=== PATIENT | male | born 1960 | race Two or more races ===

== ENCOUNTER 2016-06-26 08:36 | Day surgery (SDC) | payer BC ==
[~2016-06-26] VITALS: Ht 167.6 cm; Wt 90.7 kg
== END 2016-06-26 10:39 | disposition short-term general hospital (02) ==
LOC: SURGOP 08:36
PROC: 0DJD8ZZ Inspection of Lower Intestinal Tract, Via Natural or Artificial Opening Endoscopic (ICD-10-PCS; principal; 2016-06-26)
DX: Z12.11 Encounter for screening for malignant neoplasm of colon (principal); I10 Essential (primary) hypertension; E78.5 Hyperlipidemia, unspecified; N40.0 Benign prostatic hyperplasia without lower urinary tract symptoms; Z79.899 Other long term (current) drug therapy; Z90.49 Acquired absence of other specified parts of digestive tract; Z98.890 Other specified postprocedural states
CPT/HCPCS: J2175; J2250